=== PATIENT | male | born 1960 | race Caucasian/White ===

== ENCOUNTER 2021-03-06 13:00 | Inpatient (IN) | payer OTHER ==
[2021-03-06 13:48] VITALS: BMI 24.4
[2021-03-06] MEDS ORDERED: ONDANSETRON *ODT* 4 MG TABLET SL PRN (14:49)
[2021-03-06] MEDS ORDERED: BISMUTH SUBSALICYLATE 524 MG/30 ML PO PRN (14:49)
[2021-03-06] MEDS ORDERED: MAGNESIUM HYDROX 2400MG/30ML ORAL SUSPENSION 30 ML CUP PO PRN (14:49)
[2021-03-06] MEDS ORDERED: ACETAMINOPHEN 325 MG TABLET (FP) PO PRN ×2 (14:49)
[2021-03-06] MEDS ORDERED: METHOCARBAMOL 500 MG TABLET PO PRN (14:49)
[2021-03-06] MEDS ORDERED: MAGNESIUM CITRATE 300 ML BOTTLE PO PRN (14:49)
[2021-03-06] MEDS ORDERED: MAG HYDROX/AL HYDROX/SIMETH 30 ML UNIT-DOSE CUP PO PRN (14:49)
[2021-03-06] MEDS ORDERED: MENTHOL/PHENOL 1 EACH UD MM PRN (14:49)
[2021-03-06] MEDS ORDERED: diazePAM 5 MG TABLET PO ONE (15:15)
[2021-03-06] MEDS: PANTOPRAZOLE 40 MG TABLET PO SCH (16:23)
[2021-03-06] MEDS: diazePAM 5 MG TABLET PO SCH ×2 (16:29→22:20)
[2021-03-06] MEDS: MELATONIN 5 MG TABLETS PO SCH (22:20)
[2021-03-06] MEDS: THIAMINE HCL 100 MG TABLET (FP) PO SCH (22:20)
[2021-03-07] MEDS: diazePAM 5 MG TABLET PO SCH ×4 (05:31→22:11)
[2021-03-07] MEDS: diazePAM 5 MG TABLET PO PRN ×2 (08:54→14:55)
[2021-03-07 10:01] LABS: HEMATOCRIT 34.3 % (35.4-49); HEMOGLOBIN 11.5 GM/dL (11.7-16.9); MCHC 33.6 g/dl (32.0-35.9); MEAN CELL VOLUME 83.2 fl (80-96); MEAN PLT VOLUME 8.1 fl (7.5-11.1); PLATELET COUNT 85 K/MM3 (134-434); RBC 4.13 M/mm3 (4.00-5.60); RDW 17.7 % (11.9-15.9); WHITE BLOOD COUNT 4.1 K/mm3 (4.0-10.0)
[2021-03-07 10:11] LABS: ALBUMIN 3.7 g/dl (3.4-5.0); BLOOD UREA NITROGEN 7.1 mg/dL (7-18)
[2021-03-07 10:13] LABS: BILIRUBIN,TOTAL 1.6 mg/dL (0.2-1); CREATININE 0.6 mg/dL (0.55-1.3); TOT PROT 7.1 g/dl (6.4-8.2)
[2021-03-07] MEDS: PANTOPRAZOLE 40 MG TABLET PO SCH (10:17)
[2021-03-07] MEDS: PRENATAL VITAMINS W/ FOLIC ACID TABLET (FP) PO SCH (10:17)
[2021-03-07] MEDS: THIAMINE HCL 100 MG TABLET (FP) PO SCH (22:10)
[2021-03-07] MEDS: MELATONIN 5 MG TABLETS PO SCH (22:10)
[2021-03-08] MEDS: diazePAM 5 MG TABLET PO SCH ×3 (05:29→22:12)
[2021-03-08] MEDS: diazePAM 5 MG TABLET PO PRN (09:11)
[2021-03-08] MEDS: PANTOPRAZOLE 40 MG TABLET PO SCH (10:08)
[2021-03-08] MEDS: PRENATAL VITAMINS W/ FOLIC ACID TABLET (FP) PO SCH (10:08)
[2021-03-08] MEDS: MELATONIN 5 MG TABLETS PO SCH (22:13)
[2021-03-08] MEDS: THIAMINE HCL 100 MG TABLET (FP) PO SCH (22:13)
[2021-03-08] MEDS: SUVOREXANT 5 MG TABLET PO PRN (22:14)
[2021-03-09] MEDS: diazePAM 5 MG TABLET PO SCH ×2 (05:51→17:55)
[2021-03-09] MEDS: PRENATAL VITAMINS W/ FOLIC ACID TABLET (FP) PO SCH (10:10)
[2021-03-09] MEDS: diazePAM 5 MG TABLET PO PRN (10:11)
[2021-03-09] MEDS: THIAMINE HCL 100 MG TABLET (FP) PO SCH (22:28)
[2021-03-09] MEDS: MELATONIN 5 MG TABLETS PO SCH (22:28)
[2021-03-09] MEDS: SUVOREXANT 5 MG TABLET PO PRN (22:29)
[2021-03-10] MEDS ORDERED: diazePAM 5 MG TABLET PO ONE (06:00)
[2021-03-10 06:08] LABS: SARS-CoV-2 NAA Not Detected (Not Detected)
[2021-03-10 06:41] VITALS: PULSE 85
[2021-03-10 09:11] VITALS: BP 129/78; TEMP 96.9
[2021-03-10] MEDS: PRENATAL VITAMINS W/ FOLIC ACID TABLET (FP) PO SCH (09:48)
== END 2021-03-10 09:54 | disposition home or self-care (01) | DRG 775 ==
LOC: YASAS 13:00 → Y3N 14:42
PROVIDERS: ADMIT Allergy & Immunology; ATTEND Allergy & Immunology
PROC: HZ2ZZZZ Detoxification Services for Substance Abuse Treatment (ICD-10-PCS; principal; 2021-03-06)
DX: F10.230 Alcohol dependence with withdrawal, uncomplicated (principal); G47.00 Insomnia, unspecified; M25.572 Pain in left ankle and joints of left foot; R26.89 Other abnormalities of gait and mobility; Z87.891 Personal history of nicotine dependence; Z87.81 Personal history of (healed) traumatic fracture
CPT/HCPCS: 36415; 80053; 82247; 82947; 85027; 86593; 86780; C9803; Q0162; U0003; U0005